=== PATIENT | female | born 1960 | race Hispanic/Latino ===

== ENCOUNTER 2024-10-27 09:35 | Emergency (ER) | payer OTHER, MEDICAID ==
[2024-10-27] MEDS ORDERED: Dexamethasone 10 MG/ML VIAL ONE (10:21)
[2024-10-27] MEDS ORDERED: Ibuprofen 200 MG TAB ONE (10:21)
== END 2024-10-27 10:40 | disposition home or self-care (01) ==
LOC: BURERS 09:35
DX: S76.011A Strain of muscle, fascia and tendon of right hip, initial encounter (principal); M54.31 Sciatica, right side; I10 Essential (primary) hypertension; F17.210 Nicotine dependence, cigarettes, uncomplicated; X58.XXXA Exposure to other specified factors, initial encounter
CPT/HCPCS: 96372; 99283; J1100